=== PATIENT | female | born 2000 | race African-American/Black ===

== ENCOUNTER → 2025-03-29 16:37 | Outpatient (CLI) | payer OTHER, SELFPAY ==
[2025-03-29 17:34] LABS: Hematocrit 36.1 % (36-46); Hemoglobin 12.2 g/dL (12.0-16.0); Mean Corpuscular HGB Conc 33.9 % (30-36); Mean Corpuscular Hemoglobin 26.6 PG (26-34); Mean Corpuscular Volume 78.7 fL (80-100); Platelet Count 228 X10^3/uL (150-400)
[2025-03-29 18:26] LABS: Alanine Aminotransferase 30 IU/L (<35); Albumin 3.8 g/dL (3.5-5.0); Albumin Globulin Ratio 1.3 (1.0-2.8); Alkaline Phosphatase 88 U/L (38-126); Blood Urea Nitrogen 7 mg/dL (7-17); Calcium 9.3 mg/dL (8.4-10.2); Carbon Dioxide 20 mmol/L (22-32); Chloride 106 mmol/L (98-107); Estimated Glomerular Filt Rate > 60 mL/min (>60); Globulin 3.0 g/dL (1.7-4.1); Glucose 97 mg/dL (70-99); HEMOLYSIS < 15 (0-50); Potassium 4.1 mmol/L (3.4-5.1); Sodium 137 mmol/L (137-145); Total Protein 6.8 g/dL (6.3-8.2)
[2025-03-29 19:17] LABS: Protein (Total) Urine Random < 5 mg/dL (0-12); Protein Creatinine Ratio Urine 0.02 GRAM/24H
== END ==
LOC: LAB 16:37
PROVIDERS: PCP Family Medicine; Referring Provider Family Medicine; Visit Provider Family Medicine
DX: O16.3 Unspecified maternal hypertension, third trimester (principal)
CPT/HCPCS: 36415; 80053; 82570; 84156; 85027

== ENCOUNTER → 2025-04-12 16:49 | Outpatient (CLI) | payer OTHER, SELFPAY ==
[2025-04-12 18:00] LABS: Add Manual Diff / Slide Review NO; Hematocrit 36.2 % (36-46); Hemoglobin 12.1 g/dL (12.0-16.0); Lymphocytes Absolute Auto 1600 /uL (1100-4500); Mean Corpuscular HGB Conc 33.6 % (30-36); Mean Corpuscular Hemoglobin 26.7 PG (26-34); Mean Corpuscular Volume 79.5 fL (80-100); Platelet Count 237 X10^3/uL (150-400)
[2025-04-12 18:29] LABS: Alanine Aminotransferase 26 IU/L (<35); Estimated Glomerular Filt Rate > 60 mL/min (>60)
[2025-04-12 18:51] LABS: Protein (Total) Urine Random 12 mg/dL (0-12); Protein Creatinine Ratio Urine 0.07 GRAM/24H
== END ==
PROVIDERS: PCP Family Medicine; Referring Provider Family Medicine; Visit Provider Family Medicine
DX: O13.9 Gestational [pregnancy-induced] hypertension without significant proteinuria, unspecified trimester (principal); O09.90 Supervision of high risk pregnancy, unspecified, unspecified trimester
CPT/HCPCS: 36415; 82565; 82570; 84156; 84450; 84460; 85025

== ENCOUNTER 2025-04-12 17:21 | Outpatient (CLI) | payer OTHER, SELFPAY ==
--- NOTE | 2025-04-12 18:02 | P.TNLD_ITS ---
Visit Information Visit Information Date of evaluation: 04/12/25 Primary OB Provider: Ck Mcclure Reason for Evaluation: Yes non-stress test non-stress test reason: hypertension/pre-eclampsia Comments/Additional reasons for admission: 24-year-old at GA 32+6 weeks. [facility] Medical History (Updated 04/01/25 @ 12:32 by Ck Mcclure MD) Irregular menses Surgical History (Updated 01/17/25 @ 14:38 by Linda Gómez, RN) H/O dilation and curettage (~2020) Family History (Updated 01/17/25 @ 14:43 by Linda Gómez, RN) Father Hypertension Diabetes mellitus Abdominal aortic aneurysm Aunt Abdominal aortic aneurysm Aunt Brain aneurysm Mother Diabetes mellitus Hypertension Grandmother Diabetes mellitus Grandfather Lung cancer Diabetes mellitus Grandmother Cervical cancer Aunt Diabetes mellitus Lupus Family/Other Lupus Social History marital status: number of children: 0 household members: spouse lives independently: Yes caregiver/support person: No housing: house pets and animals: Yes (dogs) education level: college occupational status: student current occupational exposures/hazards: No special lacey needs: No travel history: recent seatbelt use: always water heater temp set < 120 deg: Yes working smoke detector in home: Yes fire extinguisher in home: No carbon monox detector in home: Yes firearms in home: Yes firearms unloaded and locked: No do you feel safe at home: Yes Tobacco: How many years used: 4 second hand exposure: No alcohol intake: former substance use type: marijuana during the past year weight has: increased > 10 lbs well-balanced diet: about half the time daily servings fruits/ve-4 caffeine: Yes Type(s) of exercise: walking Evaluation Evaluation Baseline heart rate: 130 Variability: Moderate (6-25) monitor accelerations: Present Monitor Decelerations: Absent Category of Tracing: Reactive Status: Category l Diagnosis, Plan/Disposition Final Diagnosis (1) Gestational hypertension: Status: Acute Plan/Disposition Plan: NST reactive with category 1 strip. Continue weekly testing per guidelines. OB Disposition: home
== END 2025-04-12 18:10 | disposition home or self-care (01) ==
LOC: LABOR 17:28 → OB 04-15 10:59
PROVIDERS: PCP Family Medicine; Referring Provider Family Medicine; Visit Provider Family Medicine
DX: O13.3 Gestational [pregnancy-induced] hypertension without significant proteinuria, third trimester (principal); Z3A.32 32 weeks gestation of pregnancy; O13.9 Gestational [pregnancy-induced] hypertension without significant proteinuria, unspecified trimester; O09.90 Supervision of high risk pregnancy, unspecified, unspecified trimester
CPT/HCPCS: 36415; 59025; 82565; 82570; 84156; 84450; 84460; 85025; G0378; G0379

== ENCOUNTER 2025-04-17 19:42 | Outpatient (CLI) | payer OTHER, SELFPAY ==
[2025-04-17 20:28] LABS: Add Manual Diff / Slide Review NO; Hematocrit 35.9 % (36-46); Hemoglobin 12.0 g/dL (12.0-16.0); Lymphocytes Absolute Auto 1800 /uL (1100-4500); Mean Corpuscular HGB Conc 33.5 % (30-36); Mean Corpuscular Hemoglobin 26.3 PG (26-34); Mean Corpuscular Volume 78.4 fL (80-100); Platelet Count 219 X10^3/uL (150-400)
[2025-04-17] MEDS: ACETAMINOPHEN 325 MG TABLET 975 MG PO (20:45)
[2025-04-17 20:53] LABS: Alanine Aminotransferase 22 IU/L (<35); Albumin 3.5 g/dL (3.5-5.0); Albumin Globulin Ratio 1.2 (1.0-2.8); Alkaline Phosphatase 91 U/L (38-126); Blood Urea Nitrogen 6 mg/dL (7-17); Calcium 9.7 mg/dL (8.4-10.2); Carbon Dioxide 21 mmol/L (22-32); Chloride 107 mmol/L (98-107); Estimated Glomerular Filt Rate > 60 mL/min (>60); Globulin 3.0 g/dL (1.7-4.1); Glucose 87 mg/dL (70-99); HEMOLYSIS 41 (0-50); Potassium 3.9 mmol/L (3.4-5.1); Sodium 133 mmol/L (137-145); Total Protein 6.5 g/dL (6.3-8.2); Uric Acid 3.0 mg/dL (2.5-6.2)
[2025-04-17 21:08] LABS: Protein (Total) Urine Random 17 mg/dL (0-12); Protein Creatinine Ratio Urine 0.15 GRAM/24H
[2025-04-17 21:22] VITALS: BP 145/77; PULSE 90
[2025-04-17] MEDS: LABETALOL 100 MG TABLET PO (21:22)
--- NOTE | 2025-04-17 21:27 | PM.OBTRLD ---
Visit Information Visit Information Date of evaluation: 04/17/25 Primary OB Provider: Ck Mcclure On-call OB Provider: Nayana Red Comments/Additional reasons for admission: 24yo at 33w4d here due to elevated BPs at home. The pt reports her BPs at home were in the 150s/90s. She has also had a headache since last night. No vision changes, edema, RUQ pain. She denies any vaginal bleeding, LOF, contractions. She is feeling her baby move regularly. Vital Signs Vital Signs: Vital Signs - 8 hr 04/17/25 21:22 Pulse Rate 90 Blood Pressure 145/77 H [facility] Medical History (Updated 04/01/25 @ 12:32 by Ck Mcclure MD) Irregular menses Surgical History (Updated 01/17/25 @ 14:38 by Linda Gómez RN) H/O dilation and curettage (~2019) Family History (Updated 01/17/25 @ 14:43 by Linda Gómez, RN) Father Hypertension Diabetes mellitus Abdominal aortic aneurysm Aunt Abdominal aortic aneurysm Aunt Brain aneurysm Mother Diabetes mellitus Hypertension Grandmother Diabetes mellitus Grandfather Lung cancer Diabetes mellitus Grandmother Cervical cancer Aunt Diabetes mellitus Lupus Family/Other Lupus Social History marital status: number of children: 0 household members: spouse lives independently: Yes caregiver/support person: No housing: house pets and animals: Yes (dogs) education level: college occupational status: student current occupational exposures/hazards: No special lacey needs: No travel history: recent seatbelt use: always water heater temp set < 120 deg: Yes working smoke detector in home: Yes fire extinguisher in home: No carbon monox detector in home: Yes firearms in home: Yes firearms unloaded and locked: No do you feel safe at home: Yes Tobacco: How many years used: 4 second hand exposure: No alcohol intake: former substance use type: marijuana during the past year weight has: increased > 10 lbs well-balanced diet: about half the time daily servings fruits/ve-4 caffeine: Yes Type(s) of exercise: walking Exam Vital Signs (past 8 hours): - 04/17/25 21:22 Pulse Rate 90 Blood Pressure 145/77 H Objective Labs 04/17/25 20:20 04/17/25 20:20 Labs: Laboratory Results - last 24 hr 04/17/25 04/17/25 20:20 20:40 WBC 9.7 RBC 4.58 Hgb 12.0 Hct 35.9 L MCV 78.4 L MCH 26.3 MCHC 33.5 RDW 14.7 Plt Count 219 Neut % (Auto) 73.2 Lymph % (Auto) 18.5 L Barber % (Auto) 6.7 Eos % (Auto) 0.7 L Baso % (Auto) 0.9 Neut # (Auto) 7100 H Lymph # (Auto) 1800 Barber # (Auto) 600 Eos # (Auto) 100 Baso # (Auto) 100 Sodium 133 L Potassium 3.9 Chloride 107 Carbon Dioxide 21 L BUN 6 L Creatinine 0.42 L Estimated GFR > 60 BUN/Creatinine Ratio 14.3 Glucose 87 Uric Acid 3.0 Calcium 9.7 Total Bilirubin 0.3 AST 26 ALT 22 Alkaline Phosphatase 91 Total Protein 6.5 Albumin 3.5 Globulin 3.0 Albumin/Globulin Ratio 1.2 U Random Total Protein 17 H Urine Creatinine 111.01 Protein/Creatinin Ratio 0.15 Evaluation Evaluation Baseline heart rate: 130 Variability: Moderate (6-25) monitor accelerations: Present Monitor Decelerations: Absent Category of Tracing: Reactive Diagnosis, Plan/Disposition Final Diagnosis (1) Gestational hypertension: Status: Acute Plan/Disposition Plan: 24yo at 33w4d here due to elevated BPs at home in the setting of known gestational HTN. Pts BPs here consistently in the 140s/70s. Headache improved with Tylenol. Pre-eclampsia/HELLP labs negative. Due to consistently elevated BPs will initiate Labetalol 100mg BID. Pt has f/u appt scheduled already. Will continue monitoring BPs closely at home. OB Disposition: home
== END 2025-04-17 21:30 | disposition home or self-care (01) ==
LOC: LABOR 21:25 → OB 04-18 07:25
PROVIDERS: PCP Family Medicine; Referring Provider Family Medicine; Visit Provider Family Medicine
DX: O13.3 Gestational [pregnancy-induced] hypertension without significant proteinuria, third trimester (principal); Z3A.33 33 weeks gestation of pregnancy
CPT/HCPCS: 59025; 80053; 84550; 85025; G0378; G0379

== ENCOUNTER → 2025-04-19 14:19 | Outpatient (CLI) | payer OTHER, SELFPAY ==
--- NOTE | 2025-04-19 14:20 | DI.US.S_ITS ---
PROCEDURE: US OB LIMITED INDICATIONS: Growth, SHANTELL The calculations are made using the working JAK of 06/01/2025. TECHNIQUE: Real-time scanning was performed of the fetus, with image documentation and biometric measurements. Endovaginal scanning: No COMPARISON: None. FINDINGS: General: A single living intrauterine gestation is present. Presentation: Vertex. Placenta: Placental position is anterior , without previa. Amniotic fluid index: 9.6 cm, normal range is 5-24 cm. Single deepest vertical pocket is 5.9 cm. heart rate: 136 beats per minute. Maternal cervical canal: Not well seen biometrics: Biparietal diameter: 9.1 cm, 36 week 5 day, 98 percentile Head circumference: 32.0 cm, 36 week 1 day, 72% Abdominal circumference: 31.3 cm, 35 week 1 day, 87 percentile Femur length: 6.6 cm, 34 week 0 day, 43 percentile Clinically estimated gestational age: 33 week 6 day Composite gestational age from present scan: 35 week 4 day Estimated weight and percentile: 2596 g, 80% Other: Not applicable. IMPRESSION: Single live intrauterine consistent with 35 week 4 day gestation by current ultrasound BPD, 98 percentile Approved by: Charles Hall M.D. on 04/22/2025 at 18:58
== END ==
LOC: US 14:20
PROVIDERS: PCP Family Medicine; Referring Provider Family Medicine; Visit Provider Family Medicine
DX: O99.213 Obesity complicating pregnancy, third trimester (principal); E66.01 Morbid (severe) obesity due to excess calories; O13.9 Gestational [pregnancy-induced] hypertension without significant proteinuria, unspecified trimester; Z3A.35 35 weeks gestation of pregnancy
CPT/HCPCS: 76815

== ENCOUNTER 2025-04-19 15:03 | Outpatient (CLI) | payer OTHER, SELFPAY ==
--- NOTE | 2025-04-19 16:05 | P.TNLD_ITS ---
Visit Information Visit Information Date of evaluation: 04/19/25 Primary OB Provider: Ck Mcclure Reason for Evaluation: Yes non-stress test non-stress test reason: hypertension/pre-eclampsia Comments/Additional reasons for admission: 24-year-old at GA 33+6 presenting for NST. course notable for gestational hypertension, obesity, prediabetes with normal GTT. [facility] Medical History (Updated 04/01/25 @ 12:32 by Ck Mcclure MD) Irregular menses Surgical History (Updated 01/17/25 @ 14:38 by Linda Gómez, RN) H/O dilation and curettage (~2019) Family History (Updated 01/17/25 @ 14:43 by Linda Gómez, RN) Father Hypertension Diabetes mellitus Abdominal aortic aneurysm Aunt Abdominal aortic aneurysm Aunt Brain aneurysm Mother Diabetes mellitus Hypertension Grandmother Diabetes mellitus Grandfather Lung cancer Diabetes mellitus Grandmother Cervical cancer Aunt Diabetes mellitus Lupus Family/Other Lupus Social History marital status: number of children: 0 household members: spouse lives independently: Yes caregiver/support person: No housing: house pets and animals: Yes (dogs) education level: college occupational status: student current occupational exposures/hazards: No special lacey needs: No travel history: recent seatbelt use: always water heater temp set < 120 deg: Yes working smoke detector in home: Yes fire extinguisher in home: No carbon monox detector in home: Yes firearms in home: Yes firearms unloaded and locked: No do you feel safe at home: Yes Tobacco: How many years used: 4 second hand exposure: No alcohol intake: former substance use type: marijuana during the past year weight has: increased > 10 lbs well-balanced diet: about half the time daily servings fruits/ve-4 caffeine: Yes Type(s) of exercise: walking Evaluation Evaluation Baseline heart rate: 140 Variability: Moderate (6-25) monitor accelerations: Present Monitor Decelerations: Absent Category of Tracing: Reactive Status: Category l Diagnosis, Plan/Disposition Final Diagnosis (1) Gestational hypertension: Status: Acute Plan/Disposition Plan: NST reactive with category 1 strip, maternal BP appropriate while on unit. Continue routine testing per guidelines. OB Disposition: home
== END 2025-04-19 15:35 | disposition home or self-care (01) ==
LOC: OB 04-23 11:33
PROVIDERS: PCP Family Medicine; Referring Provider Family Medicine; Visit Provider Family Medicine
DX: O13.3 Gestational [pregnancy-induced] hypertension without significant proteinuria, third trimester (principal); O99.213 Obesity complicating pregnancy, third trimester; O99.891 Other specified diseases and conditions complicating pregnancy; E66.9 Obesity, unspecified; R73.03 Prediabetes; Z3A.33 33 weeks gestation of pregnancy
CPT/HCPCS: 59025; 76815; G0378; G0379

== ENCOUNTER → 2025-04-26 15:58 | Outpatient (CLI) | payer OTHER, SELFPAY ==
[2025-04-26 16:48] LABS: Add Manual Diff / Slide Review NO; Hematocrit 36.8 % (36-46); Hemoglobin 12.2 g/dL (12.0-16.0); Lymphocytes Absolute Auto 1700 /uL (1100-4500); Mean Corpuscular HGB Conc 33.1 % (30-36); Mean Corpuscular Hemoglobin 26.2 PG (26-34); Mean Corpuscular Volume 79.2 fL (80-100); Platelet Count 231 X10^3/uL (150-400)
[2025-04-26 17:09] LABS: Alanine Aminotransferase 25 IU/L (<35); Albumin 3.5 g/dL (3.5-5.0); Albumin Globulin Ratio 1.1 (1.0-2.8); Alkaline Phosphatase 102 U/L (38-126); Blood Urea Nitrogen 7 mg/dL (7-17); Calcium 9.3 mg/dL (8.4-10.2); Carbon Dioxide 25 mmol/L (22-32); Chloride 106 mmol/L (98-107); Estimated Glomerular Filt Rate > 60 mL/min (>60); Globulin 3.1 g/dL (1.7-4.1); Glucose 88 mg/dL (70-99); HEMOLYSIS < 15 (0-50); Potassium 4.1 mmol/L (3.4-5.1); Sodium 136 mmol/L (137-145); Total Protein 6.6 g/dL (6.3-8.2)
[2025-04-26 17:31] LABS: Microalbumi Creatinin Ratio Ur 12.0 ug/mg CR (<30)
== END ==
PROVIDERS: PCP Family Medicine; Referring Provider Family Medicine; Visit Provider Family Medicine
DX: O13.3 Gestational [pregnancy-induced] hypertension without significant proteinuria, third trimester (principal)
CPT/HCPCS: 36415; 80053; 82043; 82570; 85025

== ENCOUNTER → 2025-05-03 11:50 | Outpatient (CLI) | payer OTHER, SELFPAY ==
[2025-05-04 09:36] LABS: Strep Grp B PCR NEG for Grp B Strep
== END ==
PROVIDERS: PCP Family Medicine; Visit Provider Family Medicine
DX: Z34.93 Encounter for supervision of normal pregnancy, unspecified, third trimester (principal); Z3A.36 36 weeks gestation of pregnancy
CPT/HCPCS: 87653

== ENCOUNTER → 2025-05-03 11:51 | Outpatient (CLI) | payer OTHER, SELFPAY ==
[2025-05-03 12:52] LABS: Hematocrit 37.5 % (36-46); Hemoglobin 12.5 g/dL (12.0-16.0); Mean Corpuscular HGB Conc 33.2 % (30-36); Mean Corpuscular Hemoglobin 26.2 PG (26-34); Mean Corpuscular Volume 79.0 fL (80-100); Platelet Count 248 X10^3/uL (150-400)
[2025-05-03 13:11] LABS: Alanine Aminotransferase 23 IU/L (<35); Albumin 3.7 g/dL (3.5-5.0); Albumin Globulin Ratio 1.2 (1.0-2.8); Alkaline Phosphatase 112 U/L (38-126); Blood Urea Nitrogen 6 mg/dL (7-17); Calcium 9.3 mg/dL (8.4-10.2); Carbon Dioxide 21 mmol/L (22-32); Chloride 106 mmol/L (98-107); Estimated Glomerular Filt Rate > 60 mL/min (>60); Globulin 3.0 g/dL (1.7-4.1); Glucose 79 mg/dL (70-99); HEMOLYSIS < 15 (0-50); Potassium 4.0 mmol/L (3.4-5.1); Sodium 137 mmol/L (137-145); Total Protein 6.7 g/dL (6.3-8.2)
[2025-05-03 13:51] LABS: Atypical Lymphocytes Percent 2.0 %; Band Neutrophils Percent 1.0 % (3-7); Eosinophils Percent Manual 3.0 % (2-4); Lymphocytes Percent Manual 19.0 % (25-45); Monocytes Percent Manual 5.0 % (2-11); Neutrophils Absolute Manual 6603 /uL (3000-5900); RBC Morphology Normal Morphology; Segmented Neutrophils Percent 70.0 % (38-70); Total Cells Counted 100
[2025-05-03 14:08] LABS: Protein (Total) Urine Random 15 mg/dL (0-12); Protein Creatinine Ratio Urine 0.10 GRAM/24H
== END ==
PROVIDERS: PCP Family Medicine; Referring Provider Family Medicine; Visit Provider Family Medicine
DX: O13.3 Gestational [pregnancy-induced] hypertension without significant proteinuria, third trimester (principal); O99.212 Obesity complicating pregnancy, second trimester; E66.01 Morbid (severe) obesity due to excess calories
CPT/HCPCS: 36415; 80053; 82570; 84156; 85025

== ENCOUNTER 2025-05-03 12:00 | Outpatient (CLI) | payer OTHER, SELFPAY ==
--- NOTE | 2025-05-03 12:10 | PM.OBTRLD ---
Visit Information Visit Information Date of evaluation: 05/03/25 Primary OB Provider: Ck Mcclure Reason for Evaluation: Yes non-stress test non-stress test reason: hypertension/pre-eclampsia Comments/Additional reasons for admission: 24-year-old at GA 35+6 presenting for NST. course notable for gestational hypertension, obesity, prediabetes with normal GTT. COUNT INCLUDES THE [facility] Medical History (Updated 05/03/25 @ 12:10 by Ck Mcclure MD) Irregular menses Surgical History (Updated 01/17/25 @ 14:38 by Linda Gómez, RN) H/O dilation and curettage (~2019) Family History (Updated 01/17/25 @ 14:43 by Linda Gómez, SYLVESTER) Father Hypertension Diabetes mellitus Abdominal aortic aneurysm Aunt Abdominal aortic aneurysm Aunt Brain aneurysm Mother Diabetes mellitus Hypertension Grandmother Diabetes mellitus Grandfather Lung cancer Diabetes mellitus Grandmother Cervical cancer Aunt Diabetes mellitus Lupus Family/Other Lupus Social History marital status: number of children: 0 household members: spouse lives independently: Yes caregiver/support person: No housing: house pets and animals: Yes (dogs) education level: college occupational status: student current occupational exposures/hazards: No special lacey needs: No travel history: recent seatbelt use: always water heater temp set < 120 deg: Yes working smoke detector in home: Yes fire extinguisher in home: No carbon monox detector in home: Yes firearms in home: Yes firearms unloaded and locked: No do you feel safe at home: Yes Tobacco: How many years used: 4 second hand exposure: No alcohol intake: former substance use type: marijuana during the past year weight has: increased > 10 lbs well-balanced diet: about half the time daily servings fruits/ve-4 caffeine: Yes Type(s) of exercise: walking Evaluation Evaluation Baseline heart rate: 140 Variability: Moderate (6-25) monitor accelerations: Present Monitor Decelerations: Absent Category of Tracing: Reactive Status: Category l Diagnosis, Plan/Disposition Final Diagnosis (1) Gestational hypertension: Status: Acute (2) Obesity affecting : Status: Acute (3) 35 weeks gestation of : Status: Acute Plan/Disposition Plan: NST reactive with category 1 strip, maternal BP appropriate while on unit. Continue routine testing per guidelines. OB Disposition: home
== END 2025-05-03 12:42 | disposition home or self-care (01) ==
LOC: LABOR 12:40 → OB 13:21
PROVIDERS: PCP Family Medicine; Referring Provider Family Medicine; Visit Provider Family Medicine
DX: O13.3 Gestational [pregnancy-induced] hypertension without significant proteinuria, third trimester (principal); O99.213 Obesity complicating pregnancy, third trimester; E66.9 Obesity, unspecified; Z3A.35 35 weeks gestation of pregnancy
CPT/HCPCS: 36415; 59025; 80053; 82570; 84156; 85025; 87653; G0378; G0379

== ENCOUNTER 2025-05-10 19:36 | Inpatient (IN) | payer OTHER, SELFPAY ==
[2025-05-10 21:39] LABS: Add Manual Diff / Slide Review NO; Hematocrit 37.6 % (36-46); Hemoglobin 12.8 g/dL (12.0-16.0); Lymphocytes Absolute Auto 1300 /uL (1100-4500); Mean Corpuscular HGB Conc 34.0 % (30-36); Mean Corpuscular Hemoglobin 26.8 PG (26-34); Mean Corpuscular Volume 78.8 fL (80-100); Platelet Count 233 X10^3/uL (150-400)
[2025-05-10 21:49] LABS: Alanine Aminotransferase 23 IU/L (<35); Albumin 3.8 g/dL (3.5-5.0); Albumin Globulin Ratio 1.1 (1.0-2.8); Alkaline Phosphatase 112 U/L (38-126); Blood Urea Nitrogen 6 mg/dL (7-17); Calcium 9.1 mg/dL (8.4-10.2); Carbon Dioxide 21 mmol/L (22-32); Chloride 108 mmol/L (98-107); Estimated Glomerular Filt Rate > 60 mL/min (>60); Globulin 3.5 g/dL (1.7-4.1); Glucose 96 mg/dL (70-99); HEMOLYSIS 28 (0-50); Potassium 3.8 mmol/L (3.4-5.1); Sodium 135 mmol/L (137-145); Total Protein 7.3 g/dL (6.3-8.2)
[2025-05-10 23:17] VITALS: BP 126/62; PULSE 98
[2025-05-10] MEDS: LABETALOL 100 MG TABLET PO (23:17)
[2025-05-11 00:34] VITALS: BP 129/60; PULSE 100
--- NOTE | 2025-05-11 13:26 | PM.OBHP.IH.1 ---
OB HPI Date/Time Date of admission: 05/10/25 Date Patient Seen: 05/11/25 History of Present Condition Chief complaint: Induction JAK Calculator Estimated Delivery Date Method Current WG Current Estimate 06/01/25 Ultrasound #1 37w 0d Other Estimates 05/21/25 LMP (Uncertain) 38w 4d 05/30/25 Manual 37w 2d Estimated Gestational Age (weeks): 37+0 : 2 Para: 0 Narrative: 25-year-old at GA 37+0 weeks presenting for mIOL. Endorses normal movement. Denies vaginal bleeding or denies leakage of fluid. course notable for gestational hypertension on labetalol 100mg BID, obesity with BMI 44. care: good care Dating criteria OB: based on 1st trimester US only Ultrasounds: normal 1st trimester US and normal mid trimester US Indications Indication for induction OB: gestational HTN/pre-eclampsia Preadmission Labs Last OB Lab Results: Blood Type O Positive 05/10/25, 21:30 Antibody Screen Negative 05/10/25, 21:30 Hct, (36-46) 37.6 % 05/10/25, 21:30 Hgb, (12.0-16.0) 12.8 g/dL 05/10/25, 21:30 Glucose 1 Hr 50 gm, (76-139) 131 mg/dL 03/16/25, 12:23 Group B Strep (PCR) Neg for grp b strep 05/03/25, 11:30 -: Chlamydia screen: negative and Gonorrhea screen: negative Genetic Screens: Cell-free DNA: Normal (low risk female) Prior (ies) Past Pregnancies Del. Date GA/Weeks Labor Lgth Wt Sex Route Outcome Anesthesia Place Delv Breastfeed Preg Comp Name 08/18/23 10 elective Delivery Date: 08/18/23 Last Updated by: Linda Gómez RN D&C, no complications Evaluation Evaluation Baseline heart rate: 140 Variability: Moderate (6-25) monitor accelerations: Present Monitor Decelerations: Variable Contraction Frequency (minutes): 2 Uterine Contraction Intensity: Mild Category of Tracing: Reactive Status: Category l Dilation: Closed Effacement: 40-50% station: -3 Position of cervix: mid Consistency: medium Campos score: 3 PFSH Medical History (Updated 05/03/25 @ 12:10 by Ck Mcclure MD) Irregular menses Surgical History (Updated 01/17/25 @ 14:38 by Linda Gómez RN) H/O dilation and curettage (~2020) Family History (Updated 01/17/25 @ 14:43 by Linda Gómez, RN) Father Hypertension Diabetes mellitus Abdominal aortic aneurysm Aunt Abdominal aortic aneurysm Aunt Brain aneurysm Mother Diabetes mellitus Hypertension Grandmother Diabetes mellitus Grandfather Lung cancer Diabetes mellitus Grandmother Cervical cancer Aunt Diabetes mellitus Lupus Family/Other Lupus Social History marital status: number of children: 0 household members: spouse lives independently: Yes caregiver/support person: No housing: house pets and animals: Yes (dogs) education level: college occupational status: student current occupational exposures/hazards: No special lacey needs: No travel history: recent seatbelt use: always water heater temp set < 120 deg: Yes working smoke detector in home: Yes fire extinguisher in home: No carbon monox detector in home: Yes firearms in home: Yes firearms unloaded and locked: No do you feel safe at home: Yes Smoking Status: Former smoker Tobacco: How many years used: 4 second hand exposure: No alcohol intake: former substance use type: marijuana during the past year weight has: increased > 10 lbs well-balanced diet: about half the time daily servings fruits/ve-4 caffeine: Yes Type(s) of exercise: walking Meds Home Medications and Allergies Home Medications ?Medication ?Instructions ?Recorded ?Confirmed ?Type fenofibric acid (choline) 135 mg 265 mg PO DAILY 01/17/25 05/10/25 History capsule,delayed release vitamin-ferrous sulfate 1 tab PO DAILY 01/17/25 05/10/25 History 27 mg iron-folic acid 0.8 mg tablet labetalol 100 mg tablet 100 mg PO BID #60 tabs 04/17/25 05/10/25 Rx aspirin 81 mg tablet,delayed 81 mg PO DAILY #90 tabs 04/22/25 05/10/25 Rx release (Adult Low Dose Aspirin) Allergies Allergy/AdvReac Type Severity Reaction Status Date / Time shellfish derived Allergy Severe Anaphylaxis Verified 05/10/25 19:49 Review of Systems Review of Systems ROS: Yes All systems reviewed with the patient and are negative except as otherwise documented OB Exam Narrative Exam Narrative: General: Well-nourished, no distress HEENT: NC/AT, EOMI, moist mucous membranes CV: RRR, normal S1 S2, no m/g/r Resp: CTAB Abd: Gravid, soft, NTND, +BS Ext: Full ROM, no edema Skin: No rash or lesions Neuro: A&O x3, normal tone, no focal deficits Objective Labs 05/10/25 21:30 05/10/25 21:30 Labs: Laboratory Results - last 24 hr 05/10/25 21:30 WBC 9.2 RBC 4.76 Hgb 12.8 Hct 37.6 MCV 78.8 L MCH 26.8 MCHC 34.0 RDW 14.9 H Plt Count 233 Neut % (Auto) 74.6 Lymph % (Auto) 13.7 L Nye % (Auto) 10.5 Eos % (Auto) 0.6 L Baso % (Auto) 0.6 Neut # (Auto) 6900 Lymph # (Auto) 1300 Nye # (Auto) 1000 H Eos # (Auto) 100 Baso # (Auto) 100 Sodium 135 L Potassium 3.8 Chloride 108 H Carbon Dioxide 21 L BUN 6 L Creatinine 0.46 L Estimated GFR > 60 BUN/Creatinine Ratio 13.0 Glucose 96 Calcium 9.1 Total Bilirubin 0.3 AST 29 ALT 23 Alkaline Phosphatase 112 Total Protein 7.3 Albumin 3.8 Globulin 3.5 Albumin/Globulin Ratio 1.1 Blood Type O Positive Antibody Screen Negative Assessment and Plan Assessment and Plan Assessment and Plan narrative: 25-year-old at GA 37+0 weeks presenting for mIOL due to gestational hypertension. -admit to L&D -cervical ripening with misoprostol q4h -GBS negative, ppx not indicated -pain control prn if desired by patient -PPH risk low -VTE risk low, SCDs with epidural -anticipate vaginal delivery Time-Based Coding :: 25 spent with patient and on the chart (including review of chart, obtaining history, exam, reviewing outside data, placing orders, documenting exam and treatment plan, and counseling patient) on 05/11/2025.
[2025-05-11 14:58] VITALS: BP 149/87; PULSE 94
[2025-05-11] MEDS: LABETALOL 100 MG TABLET PO ×2 (14:58→23:34)
[2025-05-11] MEDS: DINOPROSTONE VAG (CERVIDIL) 10 MG VAG (20:19)
[2025-05-11] MEDS: ZOLPIDEM 5 MG TABLET PO (20:34)
[2025-05-11 23:34] VITALS: BP 139/83; PULSE 109
[2025-05-12] MEDS: fentaNYL 100 MCG/2 ML INJ IV ×7 (03:44→13:07)
[2025-05-12 08:16] VITALS: BP 138/83; PULSE 108
[2025-05-12] MEDS: LABETALOL 100 MG TABLET PO ×2 (08:16→20:31)
--- NOTE | 2025-05-12 10:31 | PM.OBPNLAB ---
Date/Time Date Patient Seen: 05/12/25 Time Patient Seen: 09:45 Pain Control Pain control: narcotic analgesia Pelvic Exam Dilation (cm): 1 Effacement (%): 70 station: -3 Amniotic membrane status: Intact Contractions Contractions on admission: regular Monitor mode: External Contraction frequency (min): 2 Contraction pattern: Regular Contraction intensity: Mild Status status: Category l Heart Rate Baseline: 145 Monitor Accelerations: Present Monitor Decelerations: Absent Monitor Variability: Moderate Assessment and Plan Assessment: induction ongoing Comments: 25-year-old at GA 37+1 for mIOL due to gestational hypertension. MWB: Mild-moderate discomfort, managing w/IV fentanyl FWB: Cat 1 strip, no concerns at this time Labor: Slow induction with progression of cervical ripening s/p Cytotec x4 and then Cervidil overnight. Nuñez bulb placed without difficulty this morning, start low-dose Pitocin for contraction augmentation/regularity.
[2025-05-12] MEDS: ONDANSETRON 4 MG/2 ML INJ IV (11:43)
--- NOTE | 2025-05-12 13:38 | PM.AN.REGBLK ---
Regional Block Pre-procedure Procedure: Continuous Lumbar Epidural for L&D Attending OB provider: Ck Mcclure PMH/ROS narrative: IOL for GHTN. PSH/Anesthesia history narrative: Negative Exam narrative: Mall 2 ASA Class: III Labs: Hct 37.6 % (36-46) 05/10/25 21:30 Plt Count 233 X10^3/uL (150-400) 05/10/25 21:30 Medications: Current Medications Generic Name Dose Route Start Last Admin Trade Name Freq PRN Reason Stop Dose Admin Calcium Carbonate 1,000 mg 05/10/25 20:50 Calcium Carbonate 500 Mg Tab PO Q2HR PRN Dyspepsia Carboprost Tromethamine 250 mcg 05/10/25 20:49 Carboprost 250 Mcg/Ml Ampul IM Q90M PRN Bleeding Diphenhydramine HCl 25 mg 05/12/25 13:36 Diphenhydramine 50 Mg/Ml Vial IV Q30M PRN Itching Fentanyl 100 mcg 05/12/25 03:37 05/12/25 13:07 Fentanyl 100 Mcg/2 Ml Inj IV 100 mcg Q1H PRN Administration Pain, Severe (7-10) Oxytocin/Lactated Ringer's 30 unit in 500 mls @ 200 mls/hr 05/10/25 20:49 Oxytocin Premix IV CONT PRN Bleeding Protocol Tranexamic Acid 1,000 mg/ 100 mls @ 600 mls/hr 05/10/25 20:49 Sodium Chloride IV NOW PRN Bleeding Lactated Ringer's 1,000 mls @ 100 mls/hr 05/10/25 23:24 Lactated Ringers IV CONT PRN Labor Lactated Ringer's 1,000 mls @ 999 mls/hr 05/12/25 13:37 Lactated Ringers IV 05/12/25 14:37 BOLUS ONE FENT 2MCG/ML BUPIV 0.125% EPI 200 mcg in 100 mls @ 10 mls/hr 05/12/25 13:45 Fentanyl/Bupiv/Ns 2mcg/Ml - 0.125% EPIDURAL CONT NAZIA Protocol Labetalol HCl 100 mg 05/10/25 21:00 05/12/25 08:16 Labetalol 100 Mg Tablet PO 100 mg BID NAZIA Administration Lidocaine HCl 20 ml 05/10/25 20:49 Lidocaine 1% 20 Ml INJ INTRA-OP PRN Post Delivery Methylergonovine Maleate 0.2 mg 05/10/25 20:49 Methylergonovine 0.2 Mg Tablet PO Q6HR PRN Heavy Bleeding Methylergonovine Maleate 0.2 mg 05/10/25 20:49 Methylergonovine 0.2 Mg/Ml Vial IM NOW PRN Bleeding Mineral Oil 30 ml 05/10/25 20:49 Mineral Oil 30 Ml Udc TOP PRN PRN Version Misoprostol 800 mcg 05/10/25 20:49 Misoprostol 200 Mcg Tablet VA NOW PRN Bleeding Misoprostol 400 mcg 05/10/25 20:49 Misoprostol 200 Mcg Tablet SL NOW PRN Bleeding Nalbuphine HCl 5 mg 05/12/25 13:36 Nalbuphine 20 Mg/Ml Ampul IV Q6H PRN Itching Naloxone HCl 0.2 mg 05/10/25 20:49 Naloxone 0.4 Mg/Ml Vial IV Q2MIN PRN Opiate Reversal Naloxone HCl 0.2 mg 05/12/25 13:36 Naloxone 0.4 Mg/Ml Vial IV Q2MIN PRN Opiate Reversal Naloxone HCl 0.2 mg 05/12/25 13:37 Naloxone 0.4 Mg/Ml Vial IV Q2MIN PRN Opiate Reversal Ondansetron HCl 4 mg 05/10/25 20:50 05/12/25 11:43 Ondansetron 4 Mg/2 Ml Inj IV 4 mg Q4HR PRN Administration Nausea And Vomiting Ondansetron HCl 4 mg 05/12/25 13:36 Ondansetron 4 Mg/2 Ml Inj IV Q4H PRN Nausea And Vomiting Oxytocin 10 unit 05/10/25 20:49 Oxytocin 10 Unit/Ml Vial IM NOW PRN Bleeding Zolpidem Tartrate 5 mg 05/11/25 20:27 05/11/25 20:34 Zolpidem 5 Mg Tablet PO 5 mg BEDTIME PRN Administration Sleep Allergies: Allergies Allergy/AdvReac Type Severity Reaction Status Date / Time shellfish derived Allergy Severe Anaphylaxis Verified 05/10/25 19:49 Procedure Insertion date: 05/12/25 Insertion time: 13:02 Prep/Local: 1% lidocaine (chloraprep skin prep, dry x 3 min) Interspace: L4-5 Patient position: sitting Needle: 17 gauge Tuohy ((long)) Loss of resistance with: saline JOSSELIN at (cm): 10 Catheter placed at SKIN (cm): 18 Catheter in SPACE (cm): 8 Sensory level: T10 Insertion: No CSF, No Blood, No Paresthesia with insertion, No Paresthesia with injection and No Test dose reaction Initial Medications TEST DOSE time: 13:18 BOLUS DOSE time: : BOLUS DOSE (mL): 2 BOLUS DOSE med: other (remainder of test dose solution) Infusion INFUSION: 0.125% bupivacaine and with fentanyl 2 mcg/mL Initial rate (mL/hr): 10 Post-procedure Anesthesia date START: 05/12/25 Anesthesia time START: 13:08 Anesthesia date END: 05/13/25 Anesthesia time END: 05:12 Post-procedure Anesthesia Assessment: Yes CV function: HR/BP stable, Yes Resp function: RR/sat/airway adequate, Yes Post-op hydration adequate, Yes Pain control adequate, Yes Nausea & vomiting absent, Yes Temperature > 36 C, Yes Mental status appropriate and Yes Anesthesia complications
[2025-05-12] MEDS: OXYTOCIN PREMIX 30 UNIT/500 ML PLAST..BAG 200 UNIT IV (14:33)
[2025-05-12 20:31] VITALS: BP 130/61; PULSE 107
[2025-05-12] MEDS: FENT 2MCG/ML BUPIV 0.125% EPI 200 MCG/100 ML PLAST..BAG 10 MCG EPIDURAL (20:32)
[2025-05-12] MEDS: LACTATED RINGERS 1,000 ML 1000 ML IV (23:08)
[2025-05-13] MEDS: FENT 2MCG/ML BUPIV 0.125% EPI 200 MCG/100 ML PLAST..BAG 10 MCG EPIDURAL (00:43)
[2025-05-13] MEDS: LACTATED RINGERS 1,000 ML 100 ML IV (04:25)
[2025-05-13] MEDS: OXYTOCIN 10 UNIT/ML VIAL IM (05:22)
--- NOTE | 2025-05-13 06:02 | P.PCNOB_ITS ---
Labor & Delivery Delivery date: 05/13/25 Delivery Time: 05:12 Intrapartal Events: Acceleration and Deceleration Cervical ripening method: per misoprostal protocol Delivery augmentation: pitocin Delivery monitor: external FHT and external uterine Route of delivery: L&D Laceration Description: Perineal - 2nd Degree Quantitative Blood Loss: 625 Anesthesia Type: Epidural Narrative: Patient fully dilated at 0352 and began pushing at 0415. Spontaneous vaginal delivery of a viable female infant in the BRISA position occurred at 0512. The was suctioned and stimulated at the perineum, and gave appropriate cry with movement of all extremities. Delayed cord clamping was observed for >60 seconds. The cord was clamped and cut, and the handed to mother for skin to skin. Cord blood and segment were obtained. The placenta was delivered without difficulty using gentle cord traction and found to be intact with a 3- vessel cord. After fundal massage the uterus was firm and bleeding stopped. The vagina and cervix were examined for lacerations. A second-degree perineal laceration was noted and repaired with 3-0 Vicryl suture in the usual fashion. Patient stable with rooming in, bonding skin to skin and attempting to breastfeed. Baby 1: Infant gender: Female Presentation: vertex Position: Left Occiput Transverse and Left Occiput Anterior Placenta delivery description: Spontaneous Cord Vessel Description: 3 Vessels, Nuchal Cord (x1), Loose and Around Extremity x1 score (1 min): 9 score (5 min): 9 weight: 6 lb 11.198 oz Plan for aftercare: Routine care
[2025-05-13] MEDS: LANOLIN OINT 7 GM 1 APPLIC TOP (09:37)
[2025-05-13] MEDS: IBUPROFEN 600 MG TABLET PO ×3 (09:38→22:46)
[2025-05-13] MEDS: ACETAMINOPHEN 325 MG TABLET 650 MG PO ×3 (09:38→22:47)
[2025-05-13] MEDS: DERMOPLAST SPRAY 20% 60 ML 1 SPRAY TOP (09:39)
[2025-05-14] MEDS: IBUPROFEN 600 MG TABLET PO ×2 (04:27→10:13)
[2025-05-14] MEDS: ACETAMINOPHEN 325 MG TABLET 650 MG PO ×2 (04:28→10:14)
--- NOTE | 2025-05-14 08:09 | P.DS_ITS ---
Discharge Providers Provider Date of admission: 05/10/25 19:36 Discharge Date: 05/14/25 Primary care physician: Ck Mcclure MD Consults: 05/10/25 20:49 Consult to Anesthesiology Urgent Comment: Consulting Provider: Anesthesiologist Reason for consultation: Epidural 05/13/25 07:01 Consult to Marketing Communications Manager Routine Comment: Discharge provider: Ck Mcclure MD Summary Hospital Course Date Patient Seen: 05/14/25 Diagnoses: # # mother #gestational hypertension #obesity Hospital Course: Admitted for mIOL due to gestational hypertenion on 05/10/2025. Progressed adequately with pitocin augmentation to complete dilation over the course of 56 hours. She had an uncomplicated of a live female infant with a second degree perineal laceration. Her course was uncomplicated, blood pressure remained adequately controlled without medication. At discharge patient is ambulating well, tolerating normal diet, breast-feeding without difficulty, and pain is adequately controlled. She reports bleeding is similar normal menses. Peripartum Data Infant Delivery Method: Natural Vaginal Laceration Description: Perineal - 2nd Degree complications: none [place] 1: Gender: Female Disposition of : home Discharge Diagnosis (1) (spontaneous vaginal delivery): Status: Acute (2) Second degree perineal laceration during delivery: Status: Acute (3) Breast feeding status of mother: Status: Acute (4) Gestational hypertension: Status: Acute Status at Discharge Cognitive/behavioral status at discharge: oriented Functional status at discharge: independent ambulation Overall status at discharge: patient is progressing back to baseline Time Spent with Patient Time attestation: Total time spent providing and/or coordinating discharge services: Time spent: Less than 30 minutes Objective Labs 05/10/25 21:30 05/10/25 21:30 Exam Narrative Exam Narrative: General: Well-appearing, well-nourished, no distress HEENT: Moist mucous membranes, no pallor CV: Regular rate and rhythm, no murmur auscultated Resp: CTAB, comfortable work of breathing Abdomen: Soft, bowel sounds present, fundus firm below umbilicus with appropriate tenderness Extremities: No edema, no calf tenderness or evidence of DVT Discharge Plan Discharge Plan Patient Disposition: Home Discharge orders & Medications Prescriptions: New acetaminophen 325 mg Tablet 650 mg PO Q6H PRN (Reason: Pain, Mild (1-3)) Qty: 60 1RF Dermoplast (with menthol) 20-0.5 % Aerosol 1 spray topical Q1HR PRN (Reason: Pain, Moderate (4-6)) Qty: 78 1RF docusate sodium 100 mg Capsule 100 mg PO DAILY Qty: 30 1RF ibuprofen 600 mg Tablet 600 mg PO Q6H Qty: 60 1RF Purelan Cream 1 applic topical PRN PRN (Reason: Sore Nipples) Qty: 7 10RF polyethylene glycol 3350 17 gram/dose powder 17 g PO DAILY Qty: 510 1RF Continued vit-ferrous sulfat-FA 27 mg iron- 0.8 mg tablet 1 tab PO DAILY fenofibric acid (choline) 135 mg capsule,delayed release(DR/EC) 265 mg PO DAILY Discontinued aspirin [Adult Low Dose Aspirin] 81 mg tablet,delayed release (DR/EC) 81 mg PO DAILY Qty: 90 2RF labetalol 100 mg tablet 100 mg PO BID Qty: 60 0RF Follow up/Referrals: Ck Mcclure MD [Primary Care Provider, [facility]] - 06/25/25 2:00 pm Referral Note: Please check in at 1:45pm for your six week appointment with Dr. Mcclure Visit Report/Discharge Packet Stand Alone Forms: Discharge: Care, Patient Portal/API, Stroke Signs & Symptoms Discharge Data Primary Care Provider: Ck Mcclure
[2025-05-14] MEDS: DOCUSATE 100 MG CAPSULE PO (10:14)
[2025-05-14 11:01] VITALS: BP 131/76; PULSE 101; RESP 16; TEMP 36.6
== END 2025-05-14 11:50 | disposition home or self-care (01) | DRG 807 ==
PROVIDERS: Admitting Provider Family Medicine; PCP Family Medicine; Referring Provider Family Medicine; Visit Provider Family Medicine
DX: O13.4 Gestational [pregnancy-induced] hypertension without significant proteinuria, complicating childbirth (principal); Z37.0 Single live birth; Z3A.37 37 weeks gestation of pregnancy; O99.214 Obesity complicating childbirth; E66.01 Morbid (severe) obesity due to excess calories; O76 Abnormality in fetal heart rate and rhythm complicating labor and delivery; O70.1 Second degree perineal laceration during delivery; Z87.891 Personal history of nicotine dependence
CPT/HCPCS: 36415; 59050; 59200; 76815; 80053; 85025; 86850; 86900; 86901; G0379; J2405; J2590; J3010; J7120

== ENCOUNTER 2025-05-18 16:15 | Emergency (ER) | payer OTHER, SELFPAY ==
[2025-05-18] VITALS (22 sets, daily range): BP systolic 138–160; BP diastolic 72–90; PULSE 84–109; RESP 15–32; TEMP 36.9; O2SAT 85–100; BMI 44.5
--- NOTE | 2025-05-18 16:25 | EKG_ITS ---
[address] [address] Test Date: 2025-05-18 Pat Name: Juliet Childress Department: [facility] Room: Gender: Female Desk Sergeant: YASMEEN : 2000 Requested By: Order Number: [id number] Reading MD: Cesar Oakley MD Measurements Intervals [place] Rate: 103 P: 70 IN: 166 QRS: 74 QRSD: 90 T: 20 QT: 334 QTc: 437 Interpretive Statements Sinus tachycardia Electronically Signed On 05-26-2025 9:02:09 PST by Cesar Oakley MD
--- NOTE | 2025-05-18 16:26 | DI.RAD.S_ITS ---
PROCEDURE: XR CHEST 1V INDICATIONS: cough short of breath TECHNIQUE: One view of the chest was acquired. COMPARISON: None. FINDINGS: Surgical changes and devices: None. Lungs and pleura: Lungs are clear. No pleural effusions or pneumothorax. Mediastinum: Mediastinal contours appear normal. Heart size is normal. Bones and chest wall: No suspicious bony lesions. Overlying soft tissues appear unremarkable. IMPRESSION: No acute cardiopulmonary abnormality is seen. Approved by: Charles Hall M.D. on 05/18/2025 at 16:37
--- NOTE | 2025-05-18 16:49 | ED.SOB ---
HPI - SOB/Dyspnea <Randa Amaury, DO - Last Filed: 05/19/25 07:12> General Chief Complaint: Shortness of Breath/Dyspnea Stated Complaint: SOB, sore throat, exhale crackling noise Time Seen by Provider: 05/18/25 16:26 Source: patient Mode of arrival: Ambulatory Limitations: no limitations History of Present Illness HPI Narrative: Patient is a 25-year-old female , day number 5 presenting today with a variety of symptoms. She did have gestational hypertension she was induced for such never had diagnosis of preeclampsia. Presents today with the crackles in her lungs. She has a mild sore throat no fever no chills. She thinks her legs maybe swollen to but difficult to tell. No significant abdominal pain no chest pain however she is significantly short of breath with exertion. No fever no chills she is tolerating fluids. Currently breast-feeding. Related Data Home Medications ?Medication ?Instructions ?Recorded ?Confirmed fenofibric acid (choline) 135 mg 265 mg PO DAILY 01/17/25 05/18/25 capsule,delayed release vitamin-ferrous sulfate 1 tab PO DAILY 01/17/25 05/18/25 27 mg iron-folic acid 0.8 mg tablet Previous Rx's ?Medication ?Instructions ?Recorded acetaminophen 325 mg tablet 650 mg (2 x 325 mg) PO Q6H PRN 05/14/25 Pain, Mild (1-3) #60 tabs benzocaine 20 %-menthol 0.5 % 1 spray topical Q1HR PRN Pain, 05/14/25 topical aerosol (Dermoplast (with Moderate (4-6) #78 grams menthol)) docusate sodium 100 mg capsule 100 mg PO DAILY #30 caps 05/14/25 ibuprofen 600 mg tablet 600 mg PO Q6H #60 tabs 05/14/25 lanolin (Purelan topical cream) 1 applic topical PRN PRN Sore 05/14/25 Nipples #7 grams polyethylene glycol 3350 17 17 g PO DAILY #510 grams 05/14/25 gram/dose oral powder amoxicillin 500 mg capsule 1,000 mg (2 x 500 mg) PO TID 5 05/18/25 days #30 caps azithromycin 250 mg tablet See Rx Instructions PO .COMPLEX #6 05/18/25 tabs nifedipine 30 mg tablet,extended 30 mg PO DAILY #30 tabs 05/18/25 release Allergies Allergy/AdvReac Type Severity Reaction Status Date / Time shellfish derived Allergy Severe Anaphylaxis Verified 05/18/25 16:24 Patient History <Randa Rebolledo DO - Last Filed: 05/19/25 07:12> Medical History Irregular menses Surgical History H/O dilation and curettage (~2019) Family History Father Hypertension Diabetes mellitus Abdominal aortic aneurysm Aunt Abdominal aortic aneurysm Aunt Brain aneurysm Mother Diabetes mellitus Hypertension Grandmother Diabetes mellitus Grandfather Lung cancer Diabetes mellitus Grandmother Cervical cancer Aunt Diabetes mellitus Lupus Family/Other Lupus Social History marital status: number of children: 0 household members: spouse lives independently: Yes caregiver/support person: No housing: house pets and animals: Yes (dogs) education level: college occupational status: student current occupational exposures/hazards: No special lacey needs: No travel history: recent seatbelt use: always water heater temp set < 120 deg: Yes working smoke detector in home: Yes fire extinguisher in home: No carbon monox detector in home: Yes firearms in home: Yes firearms unloaded and locked: No do you feel safe at home: Yes Smoking Status: Never smoker Tobacco: How many years used: 4 second hand exposure: No alcohol intake: former substance use type: marijuana during the past year weight has: increased > 10 lbs well-balanced diet: about half the time daily servings fruits/ve-4 caffeine: Yes Type(s) of exercise: walking Smoking Status: Never smoker Exam <Randa Rebolledo DO - Last Filed: 05/19/25 07:12> Initial Vital Signs Initial Vital Signs: Vital Signs Temperature 98.4 F 05/18/25 16:19 Pulse Rate 109 H 05/18/25 16:19 Respiratory Rate 18 05/18/25 16:19 Blood Pressure 160/87 H 05/18/25 16:19 Pulse Oximetry 98 05/18/25 16:19 Oxygen Delivery Method Room Air 05/18/25 16:19 GENERAL: Alert pleasant well-appearing 25 year and in no acute distress. HEENT: Head atraumatic,EOMI, pupils reactive, face symmetric, moist mucous membranes CARDIOVASCULAR: Regular rate and rhythm without murmurs, rubs or gallops. RESPIRATORY: Breath sounds equal bilaterally, no wheezes rales or rhonchi. ABDOMEN: Soft, nontender. Normoactive bowel sounds all 4 quadrants. No guarding or rebound. EXTREMITIES: Normal range of motion, no clubbing. Mild edema no significant pain Neurovascularly intact NEUROLOGICAL: Alert and oriented x4.Normal gait and speech. Cranial nerves II through XII grossly intact. SKIN: Warm, dry, no laceration, no petechiae, no rashes or lesions. <Ky Vera MD - Last Filed: 05/19/25 00:26> Initial Vital Signs Initial Vital Signs: Vital Signs Temperature 98.4 F 05/18/25 16:19 Pulse Rate 109 H 05/18/25 16:19 Respiratory Rate 18 05/18/25 16:19 Blood Pressure 160/87 H 05/18/25 16:19 Pulse Oximetry 98 05/18/25 16:19 Oxygen Delivery Method Room Air 05/18/25 16:19 Course <Randa Rebolledo DO - Last Filed: 05/19/25 07:12> Orders Ordered: Discontinued Medications Azithromycin (Azithromycin 250 Mg Tablet) 500 mg PO NOW ONE Stop: 05/18/25 18:30 Last Admin: 05/18/25 18:40 Dose: 500 mg Documented By: CHAVA Ceftriaxone Sodium 1,000 mg/ (Sodium Chloride) 100 mls @ 200 mls/hr IV NOW ONE Stop: 05/18/25 18:30 Last Infusion: 05/18/25 19:17 Dose: Infused Documented By: Admin: 05/18/25 18:32 Dose: 200 mls/hr Documented By: CHAVA Labetalol HCl (Labetalol 20 Mg/4 Ml Syringe) 10 mg IV NOW ONE Stop: 05/18/25 16:57 Last Admin: 05/18/25 17:21 Dose: 10 mg Documented By: CHAVA Labetalol HCl (Labetalol 20 Mg/4 Ml Syringe) 20 mg IV NOW ONE Stop: 05/18/25 18:06 Last Admin: 05/18/25 18:38 Dose: Not Given Documented By: CHAVA Nifedipine (Nifedipine 30 Mg Tab Er) 30 mg PO NOW ONE Stop: 05/18/25 18:29 Last Admin: 05/18/25 18:39 Dose: 30 mg Documented By: CHAVA Vital Signs Vital signs: Vital Signs - 8 hr 05/18/25 16:36 05/18/25 16:37 05/18/25 16:37 Pulse Rate 105 H 103 H Respiratory Rate Blood Pressure 144/90 H Pulse Oximetry 100 98 05/18/25 17:03 05/18/25 17:05 05/18/25 17:05 Pulse Rate 106 H Respiratory Rate 22 Blood Pressure 150/88 H Pulse Oximetry 85 L 99 05/18/25 17:21 05/18/25 17:23 05/18/25 17:23 Pulse Rate 105 H 104 H Respiratory Rate 15 Blood Pressure 151/84 H 151/84 H Pulse Oximetry 99 05/18/25 17:25 05/18/25 17:25 05/18/25 17:30 Pulse Rate 108 H 97 H Respiratory Rate 23 32 H Blood Pressure 153/88 H Pulse Oximetry 98 99 05/18/25 17:30 05/18/25 17:35 05/18/25 17:35 Pulse Rate 96 H Respiratory Rate 22 Blood Pressure 140/81 142/79 H Pulse Oximetry 99 05/18/25 17:40 05/18/25 17:40 05/18/25 17:41 Pulse Rate 93 H 94 H Respiratory Rate 26 H Blood Pressure 147/73 H 147/73 H Pulse Oximetry 99 05/18/25 17:45 05/18/25 17:45 05/18/25 17:50 Pulse Rate 98 H 91 H Respiratory Rate 22 25 H Blood Pressure 141/73 H Pulse Oximetry 99 99 05/18/25 17:50 05/18/25 17:55 05/18/25 17:55 Pulse Rate 96 H Respiratory Rate 30 H Blood Pressure 149/73 H 150/75 H Pulse Oximetry 100 05/18/25 18:00 05/18/25 18:00 05/18/25 18:07 Pulse Rate 89 91 H Respiratory Rate 21 19 Blood Pressure 149/73 H Pulse Oximetry 99 100 05/18/25 18:07 05/18/25 18:15 05/18/25 18:15 Pulse Rate 89 Respiratory Rate 15 Blood Pressure 138/72 143/73 H Pulse Oximetry 99 05/18/25 18:30 05/18/25 18:30 05/18/25 18:45 Pulse Rate 87 Respiratory Rate 21 Blood Pressure 144/73 H 140/89 Pulse Oximetry 99 05/18/25 18:45 05/18/25 19:00 05/18/25 19:00 Pulse Rate 84 84 Respiratory Rate 17 20 Blood Pressure 146/84 H Pulse Oximetry 100 100 05/18/25 19:15 05/18/25 19:15 Pulse Rate 90 Respiratory Rate 30 H Blood Pressure 150/87 H Pulse Oximetry 99 <Ky Vera MD - Last Filed: 05/19/25 00:26> Orders Ordered: Discontinued Medications Azithromycin (Azithromycin 250 Mg Tablet) 500 mg PO NOW ONE Stop: 05/18/25 18:30 Last Admin: 05/18/25 18:40 Dose: 500 mg Documented By: CHAVA Ceftriaxone Sodium 1,000 mg/ (Sodium Chloride) 100 mls @ 200 mls/hr IV NOW ONE Stop: 05/18/25 18:30 Last Infusion: 05/18/25 19:17 Dose: Infused Documented By: Admin: 05/18/25 18:32 Dose: 200 mls/hr Documented By: CHAVA Labetalol HCl (Labetalol 20 Mg/4 Ml Syringe) 10 mg IV NOW ONE Stop: 05/18/25 16:57 Last Admin: 05/18/25 17:21 Dose: 10 mg Documented By: CHAVA Labetalol HCl (Labetalol 20 Mg/4 Ml Syringe) 20 mg IV NOW ONE Stop: 05/18/25 18:06 Last Admin: 05/18/25 18:38 Dose: Not Given Documented By: CHAVA Nifedipine (Nifedipine 30 Mg Tab Er) 30 mg PO NOW ONE Stop: 05/18/25 18:29 Last Admin: 05/18/25 18:39 Dose: 30 mg Documented By: CHAVA Vital Signs Vital signs: Vital Signs - 8 hr 05/18/25 16:36 05/18/25 16:37 05/18/25 16:37 Pulse Rate 105 H 103 H Respiratory Rate Blood Pressure 144/90 H Pulse Oximetry 100 98 05/18/25 17:03 05/18/25 17:05 05/18/25 17:05 Pulse Rate 106 H Respiratory Rate 22 Blood Pressure 150/88 H Pulse Oximetry 85 L 99 05/18/25 17:21 05/18/25 17:23 05/18/25 17:23 Pulse Rate 105 H 104 H Respiratory Rate 15 Blood Pressure 151/84 H 151/84 H Pulse Oximetry 99 05/18/25 17:25 05/18/25 17:25 05/18/25 17:30 Pulse Rate 108 H 97 H Respiratory Rate 23 32 H Blood Pressure 153/88 H Pulse Oximetry 98 99 05/18/25 17:30 05/18/25 17:35 05/18/25 17:35 Pulse Rate 96 H Respiratory Rate 22 Blood Pressure 140/81 142/79 H Pulse Oximetry 99 05/18/25 17:40 05/18/25 17:40 05/18/25 17:41 Pulse Rate 93 H 94 H Respiratory Rate 26 H Blood Pressure 147/73 H 147/73 H Pulse Oximetry 99 05/18/25 17:45 05/18/25 17:45 05/18/25 17:50 Pulse Rate 98 H 91 H Respiratory Rate 22 25 H Blood Pressure 141/73 H Pulse Oximetry 99 99 05/18/25 17:50 05/18/25 17:55 05/18/25 17:55 Pulse Rate 96 H Respiratory Rate 30 H Blood Pressure 149/73 H 150/75 H Pulse Oximetry 100 05/18/25 18:00 05/18/25 18:00 05/18/25 18:07 Pulse Rate 89 91 H Respiratory Rate 21 19 Blood Pressure 149/73 H Pulse Oximetry 99 100 05/18/25 18:07 05/18/25 18:15 05/18/25 18:15 Pulse Rate 89 Respiratory Rate 15 Blood Pressure 138/72 143/73 H Pulse Oximetry 99 05/18/25 18:30 05/18/25 18:30 05/18/25 18:45 Pulse Rate 87 Respiratory Rate 21 Blood Pressure 144/73 H 140/89 Pulse Oximetry 99 05/18/25 18:45 05/18/25 19:00 05/18/25 19:00 Pulse Rate 84 84 Respiratory Rate 17 20 Blood Pressure 146/84 H Pulse Oximetry 100 100 05/18/25 19:15 05/18/25 19:15 Pulse Rate 90 Respiratory Rate 30 H Blood Pressure 150/87 H Pulse Oximetry 99 MDM - SOB/Dyspnea <Randa Amaury, DO - Last Filed: 05/19/25 07:12> Lab Data 05/18/25 16:35 05/18/25 16:35 Labs: Lab Results 05/18/25 05/18/25 05/18/25 Range/Units 16:35 16:47 17:05 WBC 8.3 (4.5-11.0) X10^3/uL RBC 4.04 (4.0-5.2) X10^6/uL Hgb 10.9 L (12.0-16.0) g/dL Hct 31.8 L (36-46) % MCV 78.7 L (80-100) fL MCH 26.9 (26-34) PG MCHC 34.2 (30-36) % RDW 14.4 (11.6-14.8) % Plt Count 313 (150-400) X10^3/uL Neut % (Auto) 70.6 (50-75) % Lymph % (Auto) 19.5 L (25-40) % [place] % (Auto) 6.9 (3-14) % Eos % (Auto) 2.3 (2-4) % Baso % (Auto) 0.7 (0-2) % Neut # (Auto) 5900 (1602-5535) /uL Lymph # (Auto) 1600 (3054-8510) /uL [place] # (Auto) 600 (0-900) /uL Eos # (Auto) 200 (0-450) /uL Baso # (Auto) 100 (0-100) /uL Sodium 139 (137-145) mmol/L Potassium 3.7 (3.4-5.1) mmol/L Chloride 110 H (98-107) mmol/L Carbon Dioxide 23 (22-32) mmol/L BUN 15 (7-17) mg/dL Creatinine 0.81 (0.52-1.04) mg/dL Estimated GFR > 60 (>60) mL/min BUN/Creatinine Ratio 18.5 (6-22) Glucose 101 H (70-99) mg/dL Uric Acid 5.8 (2.5-6.2) mg/dL Calcium 8.9 (8.4-10.2) mg/dL Magnesium 1.6 (1.6-2.3) mg/dL Total Bilirubin 0.2 (0.2-1.3) mg/dL AST 29 (14-36) IU/L ALT 29 (<35) IU/L Alkaline Phosphatase 89 (38-126) U/L Lactate Dehydrogenase 350 H (120-246) U/L Troponin I 0.043 H (0.01-0.034) ng/mL NT-Pro-B Natriuret Pep 318 H (<125) pg/mL Total Protein 7.0 (6.3-8.2) g/dL Albumin 3.6 (3.5-5.0) g/dL Globulin 3.4 (1.7-4.1) g/dL Albumin/Globulin Ratio 1.1 (1.0-2.8) Lipase 34 (23-300) U/L Urine Color Yellow Urine Appearance Sl cloudy Urine pH 7.0 (4.5-8.0) Ur Specific [place] 1.015 (1.000-1.035) Urine Protein Negative (Negative) Urine Glucose (UA) Negative (Negative) g/dL Urine Ketones Trace H (NEGATIVE) Urine Occult Blood 3+ H (Negative) Urine Nitrate Negative (Negative) Urine Bilirubin Negative (NEGATIVE) Urine Urobilinogen 1.0 (0.2) E.U./dL Ur Leukocyte Esterase 3+ H (NEGATIVE) Urine RBC 1-5/hpf (0-5/HPF) Urine WBC 5-10/hpf H (0-5/HPF) Ur Squamous Epith Cells 0-1 /hpf (0-5/HPF) Urine Bacteria Occasional (0-1) (None) Ur Culture Indicated? Specimen cultured Vol Urine Centrifuged 10ml (spun) SARS-CoV-2 (PCR) Negative (Negative) Influenza A (RT-PCR) Flu a negative (NEGATIVE) Influenza B (RT-PCR) Flu b negative (NEGATIVE) RSV (PCR) Negative (Negative) 05/18/25 Range/Units 18:35 WBC (4.5-11.0) X10^3/uL RBC (4.0-5.2) X10^6/uL Hgb (12.0-16.0) g/dL Hct (36-46) % MCV (80-100) fL MCH (26-34) PG MCHC (30-36) % RDW (11.6-14.8) % Plt Count (150-400) X10^3/uL Neut % (Auto) (50-75) % Lymph % (Auto) (25-40) % [place] % (Auto) (3-14) % Eos % (Auto) (2-4) % Baso % (Auto) (0-2) % Neut # (Auto) (4066-2339) /uL Lymph # (Auto) (9775-4773) /uL [place] # (Auto) (0-900) /uL Eos # (Auto) (0-450) /uL Baso # (Auto) (0-100) /uL Sodium (137-145) mmol/L Potassium (3.4-5.1) mmol/L Chloride (98-107) mmol/L Carbon Dioxide (22-32) mmol/L BUN (7-17) mg/dL Creatinine (0.52-1.04) mg/dL Estimated GFR (>60) mL/min BUN/Creatinine Ratio (6-22) Glucose (70-99) mg/dL Uric Acid (2.5-6.2) mg/dL Calcium (8.4-10.2) mg/dL Magnesium (1.6-2.3) mg/dL Total Bilirubin (0.2-1.3) mg/dL AST (14-36) IU/L ALT (<35) IU/L Alkaline Phosphatase (38-126) U/L Lactate Dehydrogenase (120-246) U/L Troponin I 0.046 H (0.01-0.034) ng/mL NT-Pro-B Natriuret Pep (<125) pg/mL Total Protein (6.3-8.2) g/dL Albumin (3.5-5.0) g/dL Globulin (1.7-4.1) g/dL Albumin/Globulin Ratio (1.0-2.8) Lipase (23-300) U/L Urine Color Urine Appearance Urine pH (4.5-8.0) Ur Specific [place] (1.000-1.035) Urine Protein (Negative) Urine Glucose (UA) (Negative) g/dL Urine Ketones (NEGATIVE) Urine Occult Blood (Negative) Urine Nitrate (Negative) Urine Bilirubin (NEGATIVE) Urine Urobilinogen (0.2) E.U./dL Ur Leukocyte Esterase (NEGATIVE) Urine RBC (0-5/HPF) Urine WBC (0-5/HPF) Ur Squamous Epith Cells (0-5/HPF) Urine Bacteria (None) Ur Culture Indicated? Vol Urine Centrifuged SARS-CoV-2 (PCR) (Negative) Influenza A (RT-PCR) (NEGATIVE) Influenza B (RT-PCR) (NEGATIVE) RSV (PCR) (Negative) Imaging Data Chest x-ray: Radiologist's Impression: PROCEDURE: XR CHEST 1V INDICATIONS: cough short of breath TECHNIQUE: One view of the chest was acquired. COMPARISON: None. FINDINGS: Surgical changes and devices: None. Lungs and pleura: Lungs are clear. No pleural effusions or pneumothorax. Mediastinum: Mediastinal contours appear normal. Heart size is normal. Bones and chest wall: No suspicious bony lesions. Overlying soft tissues appear unremarkable. IMPRESSION: No acute cardiopulmonary abnormality is seen. Approved by: Charles Hall M.D. on 05/18/2025 at 16:37 CT scan - chest: Radiologist's Impression: PROCEDURE: XR CHEST 1V INDICATIONS: cough short of breath TECHNIQUE: One view of the chest was acquired. COMPARISON: None. FINDINGS: Surgical changes and devices: None. Lungs and pleura: Lungs are clear. No pleural effusions or pneumothorax. Mediastinum: Mediastinal contours appear normal. Heart size is normal. Bones and chest wall: No suspicious bony lesions. Overlying soft tissues appear unremarkable. IMPRESSION: No acute cardiopulmonary abnormality is seen. Approved by: Charles Hall M.D. on 05/18/2025 at 16:37 ECG Data Attestation: I personally reviewed and interpreted this ECG as follows: Interpretation: Normal sinus rhythm rate 103 PA interval 166 QRS [address] changes no T-wave inversions [facility] Narrative Medical decision making narrative: MDM CC: Crackles in lung Complicating co-morbidities: day number 5, gestational hypertension Data collected from: Patient and records Medical records reviewed: Medical records reviewed Differential considered: Gestational hypertension, primary hypertension, preeclampsia, sepsis, pulmonary embolism, pneumonia, congestive heart failure Exam documented above, pertinent findings include: Alert well-appearing 25-year-old crackles bilaterally no respiratory distress mildly swollen legs no significant pitting edema abdomen soft nontender Lab Test results independently reviewed as above. Pertinent findings: CBC no leukocytosis WBCs 8.3 hemoglobin 10.9 hematocrit 31.8 CMP electrolytes within normal limits glucose 109 creatinine 0.8 Troponin 0.043 BNP 318 LDH 350, uric acid 5.8 Urinalysis does not show any protein urea Independently reviewed EKG as above sinus rhythm no ischemia Imaging studies independently reviewed: Chest x-ray no acute cardiopulmonary process CT angio no pulmonary embolism, multifocal left-sided pulmonary infiltrates most consistent with pneumonia Consultations: Dr. Perez, OB on-call recommends checking blood pressure every 15 minutes Treatments: Labetalol 10 mg x 1, labetalol 20 mg x 1 Re-evaluations: [ ] Discussion: Patient 25-year-old female history of gestational hypertension presenting to day with increasing shortness of breath. No fevers or chills. She is noted to be tachycardic and hypertensive. No evidence preeclampsia but does have ongoing hypertension. CT confirms left-sided pneumonia without signs of sepsis. <Ky Vera MD - Last Filed: 05/19/25 00:26> Lab Data Labs: Lab Results 05/18/25 05/18/25 05/18/25 Range/Units 16:35 16:47 17:05 WBC 8.3 (4.5-11.0) X10^3/uL RBC 4.04 (4.0-5.2) X10^6/uL Hgb 10.9 L (12.0-16.0) g/dL Hct 31.8 L (36-46) % MCV 78.7 L (80-100) fL MCH 26.9 (26-34) PG MCHC 34.2 (30-36) % RDW 14.4 (11.6-14.8) % Plt Count 313 (150-400) X10^3/uL Neut % (Auto) 70.6 (50-75) % Lymph % (Auto) 19.5 L (25-40) % [place] % (Auto) 6.9 (3-14) % Eos % (Auto) 2.3 (2-4) % Baso % (Auto) 0.7 (0-2) % Neut # (Auto) 5900 (2826-8063) /uL Lymph # (Auto) 1600 (5171-2912) /uL [place] # (Auto) 600 (0-900) /uL Eos # (Auto) 200 (0-450) /uL Baso # (Auto) 100 (0-100) /uL Sodium 139 (137-145) mmol/L Potassium 3.7 (3.4-5.1) mmol/L Chloride 110 H (98-107) mmol/L Carbon Dioxide 23 (22-32) mmol/L BUN 15 (7-17) mg/dL Creatinine 0.81 (0.52-1.04) mg/dL Estimated GFR > 60 (>60) mL/min BUN/Creatinine Ratio 18.5 (6-22) Glucose 101 H (70-99) mg/dL Uric Acid 5.8 (2.5-6.2) mg/dL Calcium 8.9 (8.4-10.2) mg/dL Magnesium 1.6 (1.6-2.3) mg/dL Total Bilirubin 0.2 (0.2-1.3) mg/dL AST 29 (14-36) IU/L ALT 29 (<35) IU/L Alkaline Phosphatase 89 (38-126) U/L Lactate Dehydrogenase 350 H (120-246) U/L Troponin I 0.043 H (0.01-0.034) ng/mL NT-Pro-B Natriuret Pep 318 H (<125) pg/mL Total Protein 7.0 (6.3-8.2) g/dL Albumin 3.6 (3.5-5.0) g/dL Globulin 3.4 (1.7-4.1) g/dL Albumin/Globulin Ratio 1.1 (1.0-2.8) Lipase 34 (23-300) U/L Urine Color Yellow Urine Appearance Sl cloudy Urine pH 7.0 (4.5-8.0) Ur Specific [place] 1.015 (1.000-1.035) Urine Protein Negative (Negative) Urine Glucose (UA) Negative (Negative) g/dL Urine Ketones Trace H (NEGATIVE) Urine Occult Blood 3+ H (Negative) Urine Nitrate Negative (Negative) Urine Bilirubin Negative (NEGATIVE) Urine Urobilinogen 1.0 (0.2) E.U./dL Ur Leukocyte Esterase 3+ H (NEGATIVE) Urine RBC 1-5/hpf (0-5/HPF) Urine WBC 5-10/hpf H (0-5/HPF) Ur Squamous Epith Cells 0-1 /hpf (0-5/HPF) Urine Bacteria Occasional (0-1) (None) Ur Culture Indicated? Specimen cultured Vol Urine Centrifuged 10ml (spun) SARS-CoV-2 (PCR) Negative (Negative) Influenza A (RT-PCR) Flu a negative (NEGATIVE) Influenza B (RT-PCR) Flu b negative (NEGATIVE) RSV (PCR) Negative (Negative) 05/18/25 Range/Units 18:35 WBC (4.5-11.0) X10^3/uL RBC (4.0-5.2) X10^6/uL Hgb (12.0-16.0) g/dL Hct (36-46) % MCV (80-100) fL MCH (26-34) PG MCHC (30-36) % RDW (11.6-14.8) % Plt Count (150-400) X10^3/uL Neut % (Auto) (50-75) % Lymph % (Auto) (25-40) % [place] % (Auto) (3-14) % Eos % (Auto) (2-4) % Baso % (Auto) (0-2) % Neut # (Auto) (2975-4469) /uL Lymph # (Auto) (2669-5075) /uL [place] # (Auto) (0-900) /uL Eos # (Auto) (0-450) /uL Baso # (Auto) (0-100) /uL Sodium (137-145) mmol/L Potassium (3.4-5.1) mmol/L Chloride (98-107) mmol/L Carbon Dioxide (22-32) mmol/L BUN (7-17) mg/dL Creatinine (0.52-1.04) mg/dL Estimated GFR (>60) mL/min BUN/Creatinine Ratio (6-22) Glucose (70-99) mg/dL Uric Acid (2.5-6.2) mg/dL Calcium (8.4-10.2) mg/dL Magnesium (1.6-2.3) mg/dL Total Bilirubin (0.2-1.3) mg/dL AST (14-36) IU/L ALT (<35) IU/L Alkaline Phosphatase (38-126) U/L Lactate Dehydrogenase (120-246) U/L Troponin I 0.046 H (0.01-0.034) ng/mL NT-Pro-B Natriuret Pep (<125) pg/mL Total Protein (6.3-8.2) g/dL Albumin (3.5-5.0) g/dL Globulin (1.7-4.1) g/dL Albumin/Globulin Ratio (1.0-2.8) Lipase (23-300) U/L Urine Color Urine Appearance Urine pH (4.5-8.0) Ur Specific [place] (1.000-1.035) Urine Protein (Negative) Urine Glucose (UA) (Negative) g/dL Urine Ketones (NEGATIVE) Urine Occult Blood (Negative) Urine Nitrate (Negative) Urine Bilirubin (NEGATIVE) Urine Urobilinogen (0.2) E.U./dL Ur Leukocyte Esterase (NEGATIVE) Urine RBC (0-5/HPF) Urine WBC (0-5/HPF) Ur Squamous Epith Cells (0-5/HPF) Urine Bacteria (None) Ur Culture Indicated? Vol Urine Centrifuged SARS-CoV-2 (PCR) (Negative) Influenza A (RT-PCR) (NEGATIVE) Influenza B (RT-PCR) (NEGATIVE) RSV (PCR) (Negative) MDM Narrative Medical decision making narrative: MDM CC: Crackles in lung Complicating co-morbidities: day number 5, gestational hypertension Data collected from: Patient and records Medical records reviewed: Medical records reviewed Differential considered: Gestational hypertension, primary hypertension, preeclampsia, sepsis, pulmonary embolism, pneumonia, congestive heart failure Exam documented above, pertinent findings include: Alert well-appearing 25-year-old crackles bilaterally no respiratory distress mildly swollen legs no significant pitting edema abdomen soft nontender Lab Test results independently reviewed as above. Pertinent findings: CBC no leukocytosis WBCs 8.3 hemoglobin 10.9 hematocrit 31.8 CMP electrolytes within normal limits glucose 109 creatinine 0.8 Troponin 0.043 BNP 318 LDH 350, uric acid 5.8 Urinalysis does not show any protein urea Independently reviewed EKG as above sinus rhythm no ischemia Imaging studies independently reviewed: Chest x-ray no acute cardiopulmonary process CT angio no pulmonary embolism, multifocal left-sided pulmonary infiltrates most consistent with pneumonia Consultations: Dr. Perez, OB on-call recommends checking blood pressure every 15 minutes Treatments: Labetalol 10 mg x 1, labetalol 20 mg x 1 Re-evaluations: [ ] Discussion: Patient 25-year-old female history of gestational hypertension presenting to day with increasing shortness of breath. No fevers or chills. She is noted to be tachycardic and hypertensive. No evidence preeclampsia but does have ongoing hypertension. CT confirms left-sided pneumonia without signs of sepsis. 11/1/25, Chuy Lowe. 25-year-old female with history of hypertension during current , was being treated with oral labetalol, now day 5, having some shortness of breath, elevated blood pressure at triage, having taken recent Tylenol and ibuprofen prior to triage. Afebrile, SIRS screen negative. EKG without obvious ischemic changes sinus rhythm normal rate, troponin indeterminate range, BNP not very elevated. CT angiogram chest showed no pulmonary embolism, but did show patchy infiltrate changes, suspicious for pneumonia. IV ceftriaxone and oral azithromycin antibiotics initiated for pneumonia coverage. Given IV labetalol dose 10 mg x 2, then oral nifedipine 30 mg XL, per consultation recommendation with OB Dr. Valle on-call. Preeclampsia lab studies reassuring. Bleaching Supervisor Dr. Valle was consulted. Interval troponin to be drawn. Await repeat troponin results and disposition plan. Troponin 0.046 slightly elevated but similar range indeterminate. No PE on CT scanning but pneumonia changes, early antibiotics started. Doubt sepsis clinically. Unclear significance of indeterminate range troponin. Discussed again with Dr. Valle who was here in the emergency department and discussed case with patient. Patient wants to go home. Dr. King advises further oral antibiotics, to be sent to her pharmacy for [address] Valle advises discharge on nifedipine XL 30 mg twice daily. In close follow up for this next week with her obstetrical provider Dr. Mcclure. PIH precautions discussed with patient/family in presence of billet worker still in the room, signs and symptoms to look out for discussed with billet worker in the room. Pneumonia infectious disease return precautions also discussed. Follow up with Dr. Mcclure early this next week. Home with family. Discharge Plan Departure Patient Disposition: Home Clinical Impression: Pneumonia, Hypertension Instructions: DI for Pneumonia -- Adult Activity Restrictions/Additional Instructions: *You have been diagnosed with pneumonia, hypertension *What to do: At this time we will go ahead and treat you for pneumonia with antibiotics. Also starting you on blood pressure medication. You will need to call Dr. Mcclure on Tuesday to schedule close follow-up *Continue to take medications as directed Nifedipine 30 mg XL twice daily Amoxicillin 1000 mg 3 times a day for 5 days Azithromycin for 5 days *Follow up with your primary care provider in 2-3 days or call [phone] *Return to ER if you should have persistent elevated blood pressure greater than 160/100 per obstetricain bedside discharge advice, increasing shortness of breath chest pain fever or any new, worsening or concerning symptoms Prescriptions: New nifedipine 30 mg tablet extended release 30 mg PO DAILY Qty: 30 0RF amoxicillin 500 mg capsule 1,000 mg PO TID 5 Days Qty: 30 0RF azithromycin 250 mg tablet See Rx Instructions PO .COMPLEX Qty: 6 0RF Rx Instructions: For 250 mg dose pack: take 500 mg today (day 1), then 250 mg for 4 days (days 2-5) No Action vit-ferrous sulfat-FA 27 mg iron- 0.8 mg tablet 1 tab PO DAILY fenofibric acid (choline) 135 mg capsule,delayed release(DR/EC) 265 mg PO DAILY acetaminophen 325 mg Tablet 650 mg PO Q6H PRN (Reason: Pain, Mild (1-3)) Qty: 60 1RF Dermoplast (with menthol) 20-0.5 % Aerosol 1 spray topical Q1HR PRN (Reason: Pain, Moderate (4-6)) Qty: 78 1RF docusate sodium 100 mg Capsule 100 mg PO DAILY Qty: 30 1RF ibuprofen 600 mg Tablet 600 mg PO Q6H Qty: 60 1RF Purelan Cream 1 applic topical PRN PRN (Reason: Sore Nipples) Qty: 7 10RF polyethylene glycol 3350 17 gram/dose powder 17 g PO DAILY Qty: 510 1RF Referrals: Ck Mcclure MD [Primary Care Provider, Family Practice] Stand Alone Forms: Patient Portal/API
[2025-05-18 16:53] LABS: Add Manual Diff / Slide Review NO; Hematocrit 31.8 % (36-46); Hemoglobin 10.9 g/dL (12.0-16.0); Lymphocytes Absolute Auto 1600 /uL (1100-4500); Mean Corpuscular HGB Conc 34.2 % (30-36); Mean Corpuscular Hemoglobin 26.9 PG (26-34); Mean Corpuscular Volume 78.7 fL (80-100); Platelet Count 313 X10^3/uL (150-400)
--- NOTE | 2025-05-18 16:56 | DI.CT.S_ITS ---
PROCEDURE: CT ANGIO CHEST PE PROTOCOL INDICATIONS: short of breath TECHNIQUE: After the administration of intravenous contrast, 2 mm thick sections acquired from the pulmonary apices to the posterior costophrenic angles. 3-dimensional maximum intensity projection (MIP) coronal and sagittal reformats were then acquired through the thorax. For radiation dose reduction, the following was used: automated exposure control, adjustment of mA and/or kV according to patient size. COMPARISON: None. FINDINGS: Pulmonary arteries: Study is limited by bolus timing, however there is no large central pulmonary embolism present. Lower Neck: No enlarged lymph nodes. Thyroid: No thyroid nodules which require sonographic follow up, per consensus guidelines. Axillae: No enlarged lymph nodes. Chest Wall: Unremarkable. Bones: Unremarkable. Lungs and Pleura: Small multifocal pulmonary infiltrates present in the left upper and lower lung. The right lung and both pleural spaces are clear Heart: Heart size is normal. No pericardial effusion. Thoracic Vessels: No aortic aneurysm. Mediastinum and Kate: No enlarged lymph nodes. Esophagus: No wall thickening. No hiatal hernia. Upper Abdomen: Visualized upper abdomen solid organs and bowel loops appear normal. IMPRESSION: No central pulmonary embolism. Evaluation of the distal vasculature is limited by bolus timing. Multifocal left-sided pulmonary infiltrates most consistent with pneumonia. Right lung and both pleural spaces are clear. Approved by: Charles Hall M.D. on 05/18/2025 at 17:08
[2025-05-18 16:57] LABS: Alanine Aminotransferase 29 IU/L (<35); Albumin 3.6 g/dL (3.5-5.0); Albumin Globulin Ratio 1.1 (1.0-2.8); Alkaline Phosphatase 89 U/L (38-126); Blood Urea Nitrogen 15 mg/dL (7-17); Calcium 8.9 mg/dL (8.4-10.2); Carbon Dioxide 23 mmol/L (22-32); Chloride 110 mmol/L (98-107); Estimated Glomerular Filt Rate > 60 mL/min (>60); Globulin 3.4 g/dL (1.7-4.1); Glucose 101 mg/dL (70-99); HEMOLYSIS < 15 (0-50); Lipase 34 U/L (23-300); Magnesium 1.6 mg/dL (1.6-2.3); Potassium 3.7 mmol/L (3.4-5.1); Sodium 139 mmol/L (137-145); Total Protein 7.0 g/dL (6.3-8.2)
[2025-05-18 17:09] LABS: NT-proBNP (BNP-Adult 18+) 318 pg/mL (<125); Troponin I 0.043 ng/mL (0.01-0.034)
[2025-05-18] MEDS: LABETALOL 20 MG/4 ML SYRINGE 10 MG IV (17:21)
[2025-05-18 17:31] LABS: Influenza A - CEPHEID Flu A NEGATIVE (NEGATIVE); Influenza B - CEPHEID Flu B NEGATIVE (NEGATIVE)
[2025-05-18 17:32] LABS: Uric Acid 5.8 mg/dL (2.5-6.2)
[2025-05-18 17:37] LABS: COVID-19 CEPHEID 4-PLEX PCR Negative (Negative)
[2025-05-18 17:46] LABS: Bilirubin Urine UA NEGATIVE (NEGATIVE); Color Urine UA YELLOW; Glucose Urine UA NEGATIVE (Negative); Ketones Urine UA TRACE (NEGATIVE); Leukocyte Esterase Urine UA 3+ (NEGATIVE); Nitrite Urine UA NEGATIVE (Negative); Occult Blood Urine UA 3+ (Negative); Protein Urine UA NEGATIVE (Negative); Specific Gravity Urine UA 1.015 (1.000-1.035); Urobilinogen Urine UA 1.0 E.U./dL (0.2)
[2025-05-18 17:47] LABS: pH Urine UA 7.0 (4.5-8.0)
[2025-05-18 17:48] LABS: Appearance Urine UA SL CLOUDY
[2025-05-18 17:58] LABS: Culture Indicated Urine Specimen Cultured
[2025-05-18] MEDS: NIFEdipine 30 MG TAB ER PO (18:39)
[2025-05-18] MEDS: AZITHROMYCIN 250 MG TABLET 500 MG PO (18:40)
[2025-05-18 19:05] LABS: Troponin I 0.046 ng/mL (0.01-0.034)
--- NOTE | 2025-05-18 20:03 | PC.NURSE ---
OB here to discuss pt with Dr Vera, Dr Vera in room to speak with pt, pt sitting onside of bed ready to go
== END 2025-05-18 20:19 | disposition home or self-care (01) ==
PROVIDERS: Emergency Medicine; Emergency Provider Emergency Medicine; PCP Family Medicine
DX: J18.9 Pneumonia, unspecified organism (principal); O16.5 Unspecified maternal hypertension, complicating the puerperium; R00.0 Tachycardia, unspecified
CPT/HCPCS: 36415; 71045; 71275; 80053; 81001; 83615; 83690; 83735; 83880; 84484; 84550; 85025; 87086; 87637; 93005; 96365; 96375; 99284; J0696; J7050; Q9967

== ENCOUNTER → 2025-05-24 11:58 | Outpatient (CLI) | payer OTHER, SELFPAY ==
[2025-05-24 13:24] LABS: Add Manual Diff / Slide Review NO; Hematocrit 35.0 % (36-46); Hemoglobin 11.6 g/dL (12.0-16.0); Lymphocytes Absolute Auto 1700 /uL (1100-4500); Mean Corpuscular HGB Conc 33.2 % (30-36); Mean Corpuscular Hemoglobin 26.4 PG (26-34); Mean Corpuscular Volume 79.5 fL (80-100); Platelet Count 374 X10^3/uL (150-400)
[2025-05-24 13:52] LABS: Alanine Aminotransferase 21 IU/L (<35); Albumin 4.0 g/dL (3.5-5.0); Albumin Globulin Ratio 1.3 (1.0-2.8); Alkaline Phosphatase 87 U/L (38-126); Blood Urea Nitrogen 10 mg/dL (7-17); Calcium 9.5 mg/dL (8.4-10.2); Carbon Dioxide 22 mmol/L (22-32); Chloride 110 mmol/L (98-107); Estimated Glomerular Filt Rate > 60 mL/min (>60); Globulin 3.1 g/dL (1.7-4.1); Glucose 83 mg/dL (70-99); HEMOLYSIS < 15 (0-50); Potassium 4.3 mmol/L (3.4-5.1); Sodium 142 mmol/L (137-145); Total Protein 7.1 g/dL (6.3-8.2)
[2025-05-24 13:56] LABS: Protein (Total) Urine Random 11 mg/dL (0-12); Protein Creatinine Ratio Urine 0.22 GRAM/24H
== END ==
PROVIDERS: PCP Family Medicine; Referring Provider Family Medicine; Visit Provider Family Medicine
DX: O16.5 Unspecified maternal hypertension, complicating the puerperium (principal)
CPT/HCPCS: 36415; 80053; 82570; 84156; 85025